=== PATIENT | male | born 1990 ===

== ENCOUNTER 2022-02-14 15:47 | Emergency (ER) | payer SELFPAY ==
[2022-02-14 16:35] VITALS: BP 107/62
--- NOTE | 2022-02-14 17:07 | XRay Report ---
Left hand 4 views INDICATION: Thumb laceration FINDINGS: Carpal bone alignment appears normal. MCP joints and IP joints appear normal. No acute frac ture or dislocation is seen. No definite foreign body IMPRESSION: No acute findings. No foreign body. Signer Name: Solitario Canada MD Signed: 02/14/2022 5:03 PM Workstation Name: [id number]
== END 2022-02-14 20:00 | disposition left against medical advice (07) ==
LOC: ED 15:47
DX: S69.92XA Unspecified injury of left wrist, hand and finger(s), initial encounter (principal); Z53.21 Procedure and treatment not carried out due to patient leaving prior to being seen by health care provider; X58.XXXA Exposure to other specified factors, initial encounter; Y93.89 Activity, other specified; Y92.89 Other specified places as the place of occurrence of the external cause; Y99.8 Other external cause status